=== PATIENT | male | born 2000 | race Caucasian/White ===

== ENCOUNTER 2024-11-01 12:48 | Emergency (ER) | payer MEDICAID, SELFPAY ==
[2024-11-01 12:56] VITALS: BP 121/79; PULSE 78; RESP 16; TEMP 36.8; O2SAT 99; BMI 25.1
--- NOTE | 2024-11-01 13:02 | ED_ITS ---
HPI - General Adult General Chief complaint: General Medical Stated complaint: peritonsil abscess Time Seen by Provider: 11/01/24 18:09 Source: patient Limitations: no limitations History of Present Illness ED Provider: Griselda Pathak PA-C HPI narrative: 24-year-old male presents with pharyngitis x3 days. Patient was seen at urgent Care, and was sent here to rule out peritonsillar abscess. With our screening, the patient tested positive for mononucleosis. Denies trismus, drooling or dysphagia. Related Data Allergies Allergy/AdvReac Type Severity Reaction Status Date / Time peanut Allergy Unknown Verified 11/01/24 13:02 shellfish derived Allergy Unknown Verified 11/01/24 13:02 tree nut Allergy Unknown Verified 11/01/24 13:02 Review of Systems 2 Review of Systems: Yes all other systems are reviewed and are negative Constitutional: Constitutional: Reports fatigue, Reports fever(s) and Reports malaise ENT: Reports otalgia and Reports sore throat Endocrine: Endocrine: Reports fatigue PMFSH Past Medical History Attestation statement: The following information was validated with the patient. Social History Social History Smoked in Last 30 Days: No Advance Directives: No Advance Directives Information Provided: No Physical Exam ED Vital Signs: Vital Signs - 24 hr 11/01/24 12:56 11/01/24 18:14 Temperature 98.2 F 99 F Pulse Rate 78 94 Respiratory Rate 16 16 Blood Pressure 121/79 125/82 Pulse Oximetry 99 100 Oxygen Delivery Method Room Air Room Air BMI result Body Mass Index 25.1 Const Other: Alert, well-appearing no hot potato voice Orientation/consciousness: patient oriented x3 HENMT Other: Oropharynx is erythematous, both tonsils are edematous with overlying exudate, right greater than left, uvula is midline, there is no swelling over the hard palate superior to either tonsil to suggest a peritonsillar abscess. No sublingual fluctuance, no swelling inferior to the immediate jawline, no trismus no drooling Neck Other: Lymphadenopathy noted both anterior and posterior cervical chains, right greater than left anteriorly, preauricular node also inflamed on the right Resp Effort & Inspection: normal respiratory effort Cardio Other: Normal peripheral perfusion Skin Other: Warm dry no rash Neuro General: patient oriented x3, no focal motor deficits and CN's II-XI intact bilaterally Psych Other: Calm cooperative Course Course Course Narrative: RME, this is a rapid medical exam performed by Nate Mackenzie please refer to primary provider for complete H&P- 24-year-old male presents for evaluation of right-sided neck pain and swelling. His symptoms started 4 days ago, he was seen at urgent care and was sent in to rule out peritonsillar abscess. He does have some edema to the right side of the neck. Uvula is midline. The patient is managing his secretions. Plan for labs in his CT scan with IV contrast Medications Administered Discontinued Medications Generic Name Dose Route Start Last Admin Trade Name Arnoldoq PRN Reason Stop Dose Admin Al Hydroxide/Mg Hydroxide 15 ml 11/01/24 18:13 11/01/24 18:30 Magnesium Hydrox/Alum Hydrox 30 Ml Oral.Susp PO 11/01/24 18:14 15 ml ONCE ONE Administration Dexamethasone Sodium Phosphate 10 mg 11/01/24 18:13 11/01/24 18:29 Dexamethasone Sod Phosphate 10 Mg/Ml Vial IVPUSH 11/01/24 18:14 10 mg ONCE ONE Administration Ketorolac Tromethamine 15 mg 11/01/24 18:13 11/01/24 18:29 Ketorolac Tromethamine 15 Mg/Ml Vial IVPUSH 11/01/24 18:14 15 mg ONCE ONE Administration Lidocaine HCl 15 ml 11/01/24 18:13 11/01/24 18:29 Lidocaine Hcl Viscous 2 % 15 Ml Solution MUCOUS MEM 11/01/24 18:14 15 ml ONCE ONE Administration Medical Decision Making Medical Decision Making [facility] Narrative: 24-year-old male presents with pharyngitis x3 days. Patient was seen at urgent Care, and was sent here to rule out peritonsillar abscess. With our screening, the patient tested positive for mononucleosis. Denies trismus, drooling or dysphagia. No chronic issues History: Per patient I have considered the following differential diagnoses: Strep pharyngitis, mononucleosis, peritonsillar abscess, retropharyngeal abscess Plan: With our screening, basic labs, strep and mono screens were obtained. The patient is positive for mononucleosis. The patient does not have signs or symptoms of MEDICAL CODER, my exam was not consistent with a MEDICAL CODER. He has associated exudative pharyngitis from his mononucleosis. I also have low concern for an RPA. I have discussed my thought process with the patient, using shared decision-making. I told the patient if his symptoms progressed, he could certainly return to the emergency room for the CT scan that was ordered. I told him if you would like the CT scan, he most certainly could have it.I explained to him that my clinical suspicion was very low. The patient is opting to not have the CT scan. I will be sending with return precautions, and I have explained to the patient the precise exam findings that he would note if he were developing a peritonsillar abscess. The patient is in agreement with the plan. I am going to give Decadron, Toradol and Maalox viscous lidocaine for his discomfort and inflammation. I have independently reviewed the following tests: Labs: No leukocytosis, elevated atypical lymphocytes, not anemic, no electrolyte abnormality, strep screen negative, positive for mononucleosis Lab Data 11/01/24 14:23 11/01/24 14:23 Labs: Lab Results 11/01/24 11/01/24 Range/Units 14:22 14:23 WBC 9.6 (4.8-10.8) X10*3/uL RBC 5.55 (4.60-5.80) X10*6/uL Hgb 15.2 (14.0-18.0) g/dl Hct 45.0 (42.0-52.0) % MCV 81.1 (80.0-98.0) fL MCH 27.4 (27.0-33.0) pg MCHC 33.8 (31.0-36.0) g/dl RDW 13.3 (11.0-16.0) % Plt Count 189 (160-400) X10*3/uL MPV 10.1 (9.4-12.4) fL Immature Gran % (Auto) Cancelled Neut % (Auto) Cancelled Lymph % (Auto) Cancelled Victoria % (Auto) Cancelled Eos % (Auto) Cancelled Baso % (Auto) Cancelled Lymph # (Auto) Cancelled Victoria # (Auto) Cancelled Eos # (Auto) Cancelled Baso # (Auto) Cancelled Abs Immat Gran (auto) Cancelled Absolute Neuts (auto) Cancelled Absolute Nucleated RBC 0.000 (0.0-0.012) X10*3/uL Nucleated RBC % (auto) 0.0 (0.0-0.2) /100WBC Neutrophils % (Manual) 45 (45-73) % Band Neutrophils % 2 L (3-5) % Lymphocytes % (Manual) 23 (20-40) % Atypical Lymphs % (Man) 24 H (0-6) % Monocytes % (Manual) 6 (2-11) % Abs Neuts (Manual) 4.5 (2.0-8.3) X10*3/uL Lymphocytes # (Manual) 2.2 (1.2-4.9) X10*3/uL Atyp Lymphs # (Manual) 2.3 x10*3/uL Monocytes # (Manual) 0.6 (0.1-1.2) X10*3/uL Platelet Estimate NORMAL (NORMAL) Plt Morphology Comment NORMAL RBC Morphology NOTED Ovalocytes 1+ (5-14) /OIF Smear Tech's Comments MANUAL DIFF ESR 3 (0-15) MM/HR Sodium 142 (135-145) mmol/L Potassium 4.5 (3.3-5.1) mmol/L Chloride 108 (96-108) mmol/L Carbon Dioxide 27 (22-29) mmol/L Anion Gap 12 (12-20) BUN 14 (9-16) mg/dL Creatinine 1.15 (0.5-1.4) mg/dL Estim Creat Clear Calc 85.4 Estimated GFR > 60 Random Glucose 91 (60-115) mg/dL Lactic Acid 1.4 (0.5-2.0) mmol/L Calcium 9.2 (8.4-10.2) mg/dL Total Bilirubin 0.6 (0.0-1.0) mg/dL AST 40 H (5-37) U/L ALT 41 H (0-40) U/L Alkaline Phosphatase 95 (39-117) U/L C-Reactive Protein 1.14 H (< or = 0.50) mg/dL Total Protein 8.4 H (6.5-8.0) g/dL Albumin 4.8 (3.5-5.0) g/dL Lipase 18 (8-78) U/L Monoscreen Positive A (Negative) S. pyogenes GrpA ARY Negative (Negative) Discharge Plan Discharge Clinical Impression: Exudative pharyngitis, Mononucleosis Patient Disposition: Home, Self-Care Instructions: Pharyngitis (ED), Mononucleosis (ED) Additional Instructions: You tested positive for mononucleosis. See home care instructions. This is the cause of your sore throat and inflammation of your tonsils. You were given a 1 time dose of steroid to help alleviate the inflammation. You can continue to use [id number] ibuprofen 600 mg taken every 6 hours with food, for your pain. If you develop a fever you can alternate with [id number] Tylenol 1000 mg taken every 8 hours. In regard to the sore throat, warm saltwater gargles are very effective in treating your pain. Return to the emergency department if you develop any of the following symptoms: Difficulty opening your mouth, difficulty swallowing, inability to tolerate your saliva, or painful swelling developing on either side of the roof of your mouth. Follow up with your primary care provider next week for recheck. In addition, you need to abstain from contact sports for 6 weeks. Having mononucleosis predisposes you to splenic enlargement. Stand Alone Forms: Work/School Release Print Language: Yi
[2024-11-01 14:33] LABS: Hemoglobin 15.2 g/dl (14.0-18.0); Mean Corpuscular HGB Conc 33.8 g/dl (31.0-36.0); Mean Corpuscular Hemoglobin 27.4 pg (27.0-33.0); Mean Corpuscular Volume 81.1 fL (80.0-98.0); Mean Platelet Volume 10.1 fL (9.4-12.4); Platelet Count 189 X10*3/uL (160-400); Red Blood Count 5.55 X10*6/uL (4.60-5.80); Red Cell Distribution Width 13.3 % (11.0-16.0); White Blood Count 9.6 X10*3/uL (4.8-10.8)
[2024-11-01 14:40] LABS: IDNOW Serial# 58CA691E; Strep A Nucleic Acid Negative (Negative)
[2024-11-01 14:46] LABS: Lactic Acid 1.4 mmol/L (0.5-2.0)
[2024-11-01 14:47] LABS: Alanine Aminotransferase 41 U/L (0-40); Albumin Level 4.8 g/dL (3.5-5.0); Alkaline Phosphatase 95 U/L (39-117); Anion Gap 12 (12-20); Aspartate Amino Transferase 40 U/L (5-37); Bilirubin Total 0.6 mg/dL (0.0-1.0); Blood Urea Nitrogen 14 mg/dL (9-16); C Reactive Protein 1.14 mg/dL (< or = 0.50); Calcium 9.2 mg/dL (8.4-10.2); Carbon Dioxide 27 mmol/L (22-29); Chloride 108 mmol/L (96-108); Creatinine Clr Calc Pharmacy 85.4; Estimated Glomerular Filt Rate > 60; Glucose Random 91 mg/dL (60-115); Lipase 18 U/L (8-78); Potassium 4.5 mmol/L (3.3-5.1); Sodium 142 mmol/L (135-145); Total Protein 8.4 g/dL (6.5-8.0)
[2024-11-01 14:59] LABS: Monotest Positive (Negative)
[2024-11-01 15:03] LABS: SLIDE REVIEW MANUAL DIFF
[2024-11-01 15:05] LABS: Atypical Lymph Absolute Manual 2.3 x10*3/uL; Atypical Lymphs Percent Manual 24 % (0-6); Band Neutrophils Percent 2 % (3-5); Lymphocytes Absolute Manual 2.2 X10*3/uL (1.2-4.9); Lymphocytes Percent Manual 23 % (20-40); Monocytes Absolute Manual 0.6 X10*3/uL (0.1-1.2); Monocytes Percent Manual 6 % (2-11); Neutrophils Absolute Manual 4.5 X10*3/uL (2.0-8.3); Neutrophils Percent Manual 45 % (45-73); Ovalocytes 1+ (5-14) /OIF; Platelet Estimate NORMAL (NORMAL); Platelet Morphology Comment NORMAL; RBC Morphology NOTED
[2024-11-01 15:14] LABS: Erythrocyte Sedimentation Rate 3 MM/HR (0-15)
[2024-11-01 18:14] VITALS: BP 125/82; PULSE 94; RESP 16; TEMP 37.2; O2SAT 100
[2024-11-01] MEDS: Lidocaine HCl Viscous 2 % 15 ML SOLUTION MUCOUS MEM (18:29)
[2024-11-01] MEDS: dexAMETHasone sod phosphate 10 MG/ML VIAL IVPUSH (18:29)
[2024-11-01] MEDS: Ketorolac Tromethamine 15 MG/ML VIAL IVPUSH (18:29)
[2024-11-01] MEDS: Magnesium Hydrox/Alum Hydrox 30 ML ORAL.SUSP 15 ML PO (18:30)
[2024-11-01 19:16] VITALS: BP 125/82; PULSE 94; RESP 16; TEMP 37.2; O2SAT 100
== END 2024-11-01 19:23 | disposition home or self-care (01) ==
PROVIDERS: Physician Assistant; Emergency Provider Emergency Medicine
DX: J02.9 Acute pharyngitis, unspecified (principal); B27.90 Infectious mononucleosis, unspecified without complication
CPT/HCPCS: 36415; 80053; 83605; 83690; 85007; 85025; 85027; 85652; 86140; 86308; 87040; 87651; 96374; 96375; 99284; J1100; J1885